=== PATIENT | male | born 1990 | race Caucasian/White ===

== ENCOUNTER 2019-06-26 11:16 | Emergency (ER) | payer MEDICAID, OTHER ==
[2019-06-26] MEDS ORDERED: Diphtheria,Pertussis(Acell),Tetanus Vaccine 0.5 ML SDV IM ONE (12:04)
[2019-06-26] MEDS ORDERED: Sodium Chloride 0.9% 10 ML Syringe FLUSH PRN (12:05)
[2019-06-26] MEDS ORDERED: Ondansetron 4 MG/2 ML SDV IVPUSH ONE (12:05)
[2019-06-26] MEDS ORDERED: HYDROmorphone 1 MG/ML Syringe IVPUSH ONE ×2 (12:05→13:45)
[2019-06-26] MEDS ORDERED: ceFAZolin 1 GM in Premix Bag 1 BAG IV ONE ×2 (12:38→12:45)
--- NOTE | 2019-06-26 13:40 | EDM.PDOC ---
ED HPI GENERAL MEDICAL PROBLEM - General Chief Complaint: Upper Extremity Injury/Pain Stated Complaint: SAWED END OF LEFT THUMB OFF Time Seen by Provider: 06/26/19 12:06 Source of Information: Reports: Patient History Limitations: Reports: No Limitations - History of Present Illness INITIAL COMMENTS - FREE TEXT/NARRATIVE: This patient was using a hand power circular saw when the thing kicked back got away from him and lacerated his left thumb. That happened just prior to arrival. Left Finger-Thumb Pain Score (Numeric/FACES): 6 - Related Data Allergies Allergy/AdvReac Type Severity Reaction Status Date / Time No Known Allergies Allergy Verified 06/26/19 11:42 Home Meds: Home Meds Omeprazole Magnesium [Prilosec Otc] 20 mg PO DAILY 06/26/19 [History] Past Medical History - Past Surgical History Musculoskeletal Surgical History: Reports: Other (See Below) Other Musculoskeletal Surgeries/Procedures:: surgery on left thumb Social & Family History - Tobacco Use Smoking Status *Q: Current Every Day Smoker Years of Tobacco use: 10 Packs/Tins Daily: 1 - Caffeine Use Caffeine Use: Reports: Coffee, Soda - Recreational Drug Use Recreational Drug Use: No Review of Systems - Review of Systems Review Of Systems: ROS reveals no pertinent complaints other than HPI. ED EXAM, GENERAL - Physical Exam Exam: See Below Exam Limited By: No Limitations General Appearance: Alert, WD/WN, Mild Distress Extremities: Other (There is a large laceration longitudinal to the palmar surface of the distal phalanx of the left thumb. This forms a large longitudinal flap. I don't see obvious bone or tendon involvement however I did not explore the wound. It's difficult to check for range of motion and tendon involvement due to the level of pain he has.) Course - Vital Signs Last Recorded V/S: Last Vital Signs Temp 35.6 C 06/26/19 11:42 Pulse 78 06/26/19 11:42 Resp 13 06/26/19 11:42 BP 132/86 06/26/19 11:42 Pulse Ox 96 06/26/19 11:42 - Orders/Labs/Meds Orders: Active Orders 24 hr Category Date Time Status Vaccines to be Administered [RC] PER UNIT ROUTINE Care 06/26/19 12:04 Active Sodium Chloride 0.9% [Saline Flush] Med 06/26/19 12:05 Active 10 ml FLUSH ASDIRECTED PRN Saline Lock Insert [OM.PC] Urgent Oth 06/26/19 12:05 Ordered Medication Orders Sodium Chloride (Saline Flush) 10 ml FLUSH ASDIRECTED PRN PRN Reason: Keep Vein Open Last Admin: 06/26/19 12:26 Dose: 10 ml Meds: Medications Generic Name Dose Route Start Last Admin Trade Name Freq PRN Reason Stop Dose Admin Sodium Chloride 10 ml 06/26/19 12:05 06/26/19 12:26 Saline Flush FLUSH 10 ml ASDIRECTED PRN Administration Keep Vein Open Discontinued Medications Generic Name Dose Route Start Last Admin Trade Name Freq PRN Reason Stop Dose Admin Diphtheria/Tetanus/Acell Pertussis 0.5 ml 06/26/19 12:04 06/26/19 12:16 Adacel IM 06/26/19 12:05 0.5 ml .ONCE ONE Administration Hydromorphone HCl 1 mg 06/26/19 12:05 06/26/19 12:20 Dilaudid IVPUSH 06/26/19 12:06 1 mg ONETIME ONE Administration Cefazolin Sodium/Dextrose 1 gm 50 mls @ 100 mls/hr 06/26/19 12:38 / Premix IV 06/26/19 13:07 ONETIME ONE Cefazolin Sodium/Dextrose 1 gm 50 mls @ 100 mls/hr 06/26/19 12:45 06/26/19 12 :54 / Premix IV 06/26/19 13:14 100 mls/hr ONETIME ONE Administration Ondansetron HCl 4 mg 06/26/19 12:05 06/26/19 12:15 Zofran IVPUSH 06/26/19 12:06 4 mg ONETIME ONE Administration - Re-Assessments/Exams Free Text/Narrative Re-Assessment/Exam: 06/26/19 13:37 Dr. Yan saw this patient and feels that he needs to see a hand surgeon. The patient was receiving 1 g of Ancef IV and the small amount remaining in the bag was used to soak some gauze that was placed into the wound at Dr. Yan's direction. I spoke with Dr. Contreras at [facility] in [place] and he has accepted the patient in transfer. His will take him there. He's aware he needs to remain nothing by mouth Departure - Departure Time of Disposition: 13:39 Disposition: DC/Tfer to Acute Hospital 02 Condition: Fair Clinical Impression: Laceration of left thumb with tendon involvement, report - Discharge Information Referrals: PCP,None [Primary Care Provider] - Additional Instructions: Go directly to the emergency department at [facility]. Do not eat or drink anything since you will likely need surgery. Dr. Contreras will see you - My Orders Last 24 Hours: My Active Orders 06/26/19 12:04 Vaccines to be Administered [RC] PER UNIT ROUTINE 06/26/19 12:05 Sodium Chloride 0.9% [Saline Flush] 10 ml FLUSH ASDIRECTED PRN Saline Lock Insert [OM.PC] Urgent - Assessment/Plan Last 24 Hours: My Active Orders 06/26/19 12:04 Vaccines to be Administered [RC] PER UNIT ROUTINE 06/26/19 12:05 Sodium Chloride 0.9% [Saline Flush] 10 ml FLUSH ASDIRECTED PRN Saline Lock Insert [OM.PC] Urgent
--- NOTE | 2019-06-30 12:08 | ER ---
DATE OF SERVICE: 06/26/2019 This is a 28-year-old presenting with a saw-type laceration to the end of his left thumb. The soft tissues at the end of the thumb are largely avulsed beginning more or less at the level of the distal end of phalangeal joint with only a small amount of soft tissue remaining. The digit does appear to be viable. The patient does appear to have some abnormality in terms of flexor action of the distal phalange, and there appears to probably be some bone loss in that area as well. 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 Given this, we will refer him to a hand surgeon. The thumb will be rewrapped with an Ancef-containing gauze, and he has also received some IV Ancef currently. Dr. Torre, the emergency room physician, will arrange transfer. Nolan Yan MD /[id number]
== END 2019-06-26 13:50 ==
LOC: JP.ED 11:16
DX: S66.022A Laceration of long flexor muscle, fascia and tendon of left thumb at wrist and hand level, initial encounter (principal); Z23 Encounter for immunization; F17.210 Nicotine dependence, cigarettes, uncomplicated; Z79.899 Other long term (current) drug therapy; W27.0XXA Contact with workbench tool, initial encounter
CPT/HCPCS: 90471; 90715; 96365; 96375; 99284; J0690; J1170; J2405